=== PATIENT | female | born 1985 | race Caucasian/White ===

== ENCOUNTER 2019-08-13 00:32 | Emergency (ER) | payer MEDICAID ==
[~2019-08-13] VITALS: Ht 160 cm; Wt 64.5 kg
[2019-08-13 00:41] VITALS: Ht 160 cm; Wt 64.5 kg
[2019-08-13 01:37] LABS: RED CELL DISTRIBUTION WIDTH 11.7 % (11.5-14.5)
[2019-08-13 01:39] LABS: BASOPHIL % 2.2 % (0-2); PLATELET COUNT 259 x10^3mcL (130-400)
[2019-08-13 01:42] LABS: CALCIUM 9.8 mg/dL (8.5-10.1); CARBON DIOXIDE 24.1 mmol/L (21-32); CHLORIDE SERUM 103 mmol/L (98-107); CREATININE SERUM 0.7 mg/dL (0.6-1.0); GFR1 > 60 mL/min; GLUCOSE SERUM 108 mg/dL (74-106); POTASSIUM SERUM 3.7 mmol/L (3.5-5.1); SODIUM SERUM 137 mmol/L (136-145)
[2019-08-13 01:47] LABS: ALBUMIN 3.5 g/dL (3.4-5.0); ALKALINE PHOSPHATASE 74 U/L (46-116); ALT/SGPT 36 U/L (14-59); AST/SGOT 23 U/L (15-37); BILIRUBIN TOTAL 0.54 mg/dL (0.20-1.00); TOTAL PROTEIN, SERUM 7.6 g/dL (6.4-8.2)
[2019-08-13 02:54] VITALS: BP 114/76
== END 2019-08-13 02:54 | disposition home or self-care (01) ==
LOC: EDBD 00:32 → ED 00:32
PROVIDERS: Emergency Medicine
DX: F41.0 Panic disorder [episodic paroxysmal anxiety] (principal); R11.0 Nausea
CPT/HCPCS: 36415; 87804; J1885; Q0162